=== PATIENT | female | born 1975 | race Two or more races ===

== ENCOUNTER 2021-09-28 10:44 | Emergency (ER) | payer OTHER ==
[~2021-09-28] VITALS: Ht 162.6 cm; Wt 64.9 kg
[2021-09-28] MEDS ORDERED: MEDROLPACK PO (16:01)
[2021-09-28] MEDS ORDERED: VALACYCLOVIR1000 MG PO (16:01)
== END 2021-09-28 16:39 ==
LOC: ER 10:44
DX: G81.94 Hemiplegia, unspecified affecting left nondominant side (principal)